=== PATIENT | female | born 2000 | race African-American/Black ===

== ENCOUNTER 2024-06-09 12:25 | Outpatient (CLI) | payer OTHER | END 2024-06-09 12:27 | disposition home or self-care (01) | LOC: PRENATAL 12:25 | PROVIDERS: ATTEND Obstetrics & Gynecology Maternal & Fetal Medicine | DX: O36.80X0 Pregnancy with inconclusive fetal viability, not applicable or unspecified (principal); Z36.82 Encounter for antenatal screening for nuchal translucency; O99.211 Obesity complicating pregnancy, first trimester; Z3A.12 12 weeks gestation of pregnancy ==

== ENCOUNTER → 2024-08-09 08:30 | Outpatient (CLI) | payer OTHER | END | disposition home or self-care (01) | LOC: PRENATAL 08:30 | PROVIDERS: ATTEND Obstetrics & Gynecology Maternal & Fetal Medicine | DX: O35.3XX0 Maternal care for (suspected) damage to fetus from viral disease in mother, not applicable or unspecified (principal); O44.00 Complete placenta previa NOS or without hemorrhage, unspecified trimester; O99.210 Obesity complicating pregnancy, unspecified trimester; Z3A.20 20 weeks gestation of pregnancy ==